=== PATIENT | male | born 1965 | race Caucasian/White ===

== ENCOUNTER 2017-01-25 16:14 | Emergency (ER) | payer BC ==
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
[2017-01-25] MEDS ORDERED: DIPH,PERTUSS(ACELL),TET VAC/PF 0.5 ML VIAL IM ONE (17:53)
--- NOTE | 2017-01-26 19:22 | RADIOLOGY REPORT ---
Five views of the right knee demonstrate no displaced fracture, subluxation or radiopaque foreign body. The visualized joints appear unremarkable. IMPRESSION: No displaced injury is identified. No radiopaque foreign body is seen. MARYAM
== END 2017-01-25 17:46 | disposition home or self-care (01) ==
LOC: ER 16:14
DX: S81.011A Laceration without foreign body, right knee, initial encounter (principal); V28.4XXA Motorcycle driver injured in noncollision transport accident in traffic accident, initial encounter; Y92.410 Unspecified street and highway as the place of occurrence of the external cause; Z23 Encounter for immunization
CPT/HCPCS: 12002; 90471; 99284